=== PATIENT | male | born 1985 | race Caucasian/White ===

== ENCOUNTER 2016-11-30 12:05 | Emergency (ER) | payer OTHER, BC ==
[~2016-11-30] VITALS: Ht 182.9 cm; Wt 88.0 kg
[2016-11-30 12:10] VITALS: Ht 182.9 cm; Wt 88.0 kg
[2016-11-30] MEDS ORDERED: [UNRECOGNIZED DRUG - CODE] PO (12:46)
[2016-11-30] MEDS ORDERED: NO ROUTINE MEDS (12:46)
--- NOTE | 2016-11-30 13:12 | NUR ---
PROVIDER Rosemarie RIVAS MOTOR POOL CLERK IN TO SEE PATIENT.
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
[2016-11-30 14:00] VITALS: BP 133/75; PULSE 80; RESP 14; TEMP 98.4; O2SAT 98
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
== END 2016-11-30 14:00 | disposition home or self-care (01) ==
LOC: ED 12:05
DX: S00.81XA Abrasion of other part of head, initial encounter (principal); V49.50XA Passenger injured in collision with unspecified motor vehicles in traffic accident, initial encounter; Y93.89 Activity, other specified; Y92.410 Unspecified street and highway as the place of occurrence of the external cause; Y99.8 Other external cause status